=== PATIENT | female | born 1990 | race Caucasian/White ===

== ENCOUNTER 2022-01-19 14:00 | Emergency (ER) | payer MEDICAID ==
[~2022-01-19] VITALS: Ht 165.1 cm; Wt 58.0 kg
[2022-01-19 14:09] VITALS: BP 136/114
== END 2022-01-19 18:02 | disposition home or self-care (01) ==
LOC: ER 14:38
DX: M25.522 Pain in left elbow (principal); Z98.890 Other specified postprocedural states
CPT/HCPCS: 29105; 73080; 99283